=== PATIENT | female | born 1985 | race Hispanic/Latino ===

== ENCOUNTER 2018-10-20 19:18 | Emergency (ER) | payer SELFPAY ==
[2018-10-20 20:47] LABS: Absolute Lymphocytes (CBC) 3.2 K/uL (0.7-4.9); Absolute Monocytes 0.7 K/uL (0.1-1.3); Basophils % 0.3 % (0-1.3); Eosinophils % 0.7 % (0-4.4); MPV 8.9 fL (7.6-11.3); Monocytes % 4.8 % (3.3-12.3); RBC Red Blood Cell Count 4.47 M/uL (3.86-4.86)
[2018-10-20 20:50] LABS: Urine Blood TRACE (NEG); Urine Glucose NEGATIVE (NEG); Urine Protein NEGATIVE (NEG); Urine Specific Gravity 1.015 (1.005-1.030)
[2018-10-20 21:36] LABS: BUN Blood Urea Nitrogen 9 mg/dL (7-18); Bicarbonate 24 mmol/L (21-32); Glucose Level 90 mg/dL (74-106); HCG, Quantitative 76894 mIU/mL (1-3); Sodium Level 138 mmol/L (136-145)
[2018-10-20 22:16] LABS: Urine Bacteria 20-50 /HPF (<20); Urine Culture Reflex Order REFLEXED; Urine RBC <5 /HPF (NONE SEEN)
--- NOTE | 2018-10-20 22:26 | RAD REPORT ---
EXAM DESCRIPTION: US - Transvaginal OB - 10/20/2018 9:45 pm CLINICAL HISTORY: Abd pain;Abd cramping, COMPARISON: No comparisons FINDINGS: A single gestational sac is seen within the uterus. The shape of the sac is within normal limits for gestational age. Within the sac is a single pole with crown-rump length of 2.3 cm, c orrelating to estimated gestational age of 9 weeks 1 day. Estimated date of delivery is 05/24/2019. Heart rate is 174 BPM. The placenta is not yet developed due to early gestational age. The maternal adnexa are within normal limits. IMPRESSION: Single live early intrauterine gestation with estimated gestational age of 9 weeks 1 day , CARMEN 05/24/2019.
--- NOTE | 2018-10-20 22:29 | ER ---
Nurse's Notes [facility] Name: Nevin Julian Age: 33 yrs Sex: Female : 1985 Arrival Date: 10/20/2018 Time: 19:24 Bed 23 Private MD: None, None Diagnosis: Lower abdominal pain, unspecified;Intrauterine , first trimester Presentation: 10/20 19:30 Presenting complaint: Patient states: Pelvic pain and headache x 1 week with cramping; lp1 Denies any vaginal discharge; States about 9 weeks ; States whenever she eats, she vomits. Transition of care: patient was not received from another setting of care. Onset of symptoms was October 20, 2018. Risk Assessment: Do you want to hurt yourself or someone else? Patient reports no desire to harm self or others. Initial Sepsis Screen: Does the patient meet any 2 criteria? No. Patient's initial sepsis screen is negative. Does the patient have a suspected source of infection? No. Patient's initial sepsis screen is negative. Care prior to arrival: None. 19:30 Method Of Arrival: Ambulatory lp1 19:30 Acuity: WAYNE 3 lp1 Triage Assessment: 19:45 General: Appears in no apparent distress. comfortable, Behavior is calm, cooperative, ca1 appropriate for age. 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 - Social history:: Smoking status: Patient/guardian denies using tobacco. - Ebola Screening: : No symptoms or risks identified at this time. - Family history:: not pertinent. - Hospitalizations: : No recent hospitalization is reported. Screenin:40 Abuse screen: Denies threats or abuse. Denies injuries from another. Nutritional ca1 screening: No deficits noted. Tuberculosis screening: No symptoms or risk factors identified. Fall Risk None identified. Assessment: 19:40 General: Appears in no apparent distress. comfortable, Behavior is calm, cooperative, ca1 appropriate for age. Pain: Complains of pain in abdomen Pain does not radiate. Pain currently is 8 out of 10 on a pain scale. Pain began 1 week ago. Neuro: Level of Consciousness is awake, alert, obeys commands, Oriented to person, place, time, situation. Cardiovascular: Heart tones S1 S2 present Capillary refill < 3 seconds Patient's skin is warm and dry. Respiratory: Airway is patent Respiratory effort is even, unlabored, Respiratory pattern is regular, symmetrical, Breath sounds are clear bilaterally. GI: Abdomen is round non-distended, Bowel sounds present X 4 quads. Abd is soft and non tender X 4 quads. : No deficits noted. No signs and/or symptoms were reported regarding the genitourinary system. EENT: No deficits noted. No signs and/or symptoms were reported regarding the EENT system. Derm: Skin is intact, is healthy with good turgor, Skin is pink, warm \T\ dry. Musculoskeletal: Circulation, motion, and sensation intact. Capillary refill < 3 seconds. 20:35 Reassessment: Patient appears in no apparent distress at this time. Patient and/or ca1 family updated on plan of care and expected duration. Pain level reassessed. Patient is alert, oriented x 3, equal unlabored respirations, skin warm/dry/pink. 21:45 Reassessment: Patient appears in no apparent distress at this time. Patient and/or ca1 family updated on plan of care and expected duration. Pain level reassessed. Patient is alert, oriented x 3, equal unlabored respirations, skin warm/dry/pink. 22:40 Reassessment: Patient appears in no apparent distress at this time. Patient is alert, ca1 oriented x 3, equal unlabored respirations, skin warm/dry/pink. Vital Signs: 19:35 BP 121 / 83; Pulse 81; Resp 18; Temp 98.4(O); Pulse Ox 98% on R/A; Weight 87.09 kg; lp1 Height 5 ft. 4 in. (162.56 cm); Pain 5/10; 20:30 BP 120 / 81; Pulse 79; Resp 17 S; Pulse Ox 100% on R/A; ca1 21:25 BP 119 / 78; Pulse 82; Resp 17 S; Pulse Ox 100% on R/A; ca1 22:45 BP 125 / 84; Pulse 80; Resp 18 S; Pulse Ox 99% on R/A; ca1 19:35 Body Mass Index 32.96 (87.09 kg, 162.56 cm) lp1 ED Course: 19:24 Patient arrived in ED. mr 19:25 None, None is Private Physician. mr 19:34 Triage completed. lp1 19:35 Arm band placed on right wrist. lp1 19:48 Apolinar Fatima MD is Attending Physician. rn 20:00 Sil Kinney RN is Primary Nurse. ca1 20:30 Initial lab(s) drawn, by ED staff, sent to lab. Urine collected: clean catch specimen, jp3 clear, glenis colored. Inserted saline lock: 20 gauge in right antecubital area, using aseptic technique. Blood collected. 21:15 Repeat lab(s) drawn. by me, sent to lab. jp3 21:15 No provider procedures requiring assistance completed. ca1 21:19 Placed in gown. Bed in low position. Call light in reach. Side rails up X 1. Warm jp3 blanket given. Pillow given. Pulse ox on. NIBP on. 21:20 Ultrasound completed. Patient tolerated well. Notified ED Physician prema. sg3 21:45 US Transvaginal Ob In Process Unspecified. EDMS 22:45 IV discontinued, intact, bleeding controlled, No redness/swelling at site. Pressure ca1 dressing applied. Administered Medications: 22:35 Drug: Macrobid 100 mg Route: PO; ca1 22:49 Follow up: Response: Medication administered at discharge. ca1 Outcome: 22:29 Discharge ordered by . rn 22:45 Discharged to home ambulatory, with significant other. ca1 22:45 Condition: stable 22:45 Discharge instructions given to patient, Instructed on discharge instructions, follow up and referral plans. medication usage, Demonstrated understanding of instructions, follow-up care, medications, Prescriptions given X 1. 22:49 Patient left the ED. ca1 Signatures: Dispatcher [employer] [facility] Alisa Ro Apolinar Fatima MD MD rn Pena, Laura, RN RN lp1 Fany Rm sg3 Magdaleno Garcia jp3 Sil Kinney RN RN ca1 Corrections: (The following items were deleted from the chart) 21:19 20:00 Inserted saline lock: 20 gauge in right antecubital area, using aseptic jp3 technique. Blood collected. jp3 21:19 20:00 Initial lab(s) drawn, by ED staff, sent to lab. Urine collected: clean catch jp3 specimen, clear, glenis colored, jp3
--- NOTE | 2018-10-20 22:29 | EDPHYS ---
Physician Documentation [facility] Name: Nevin Julian Age: 33 yrs Sex: Female : 1985 Arrival Date: 10/20/2018 Time: 19:24 Bed 23 Private MD: None, None ED Physician Apolinar Fatima HPI: 10/20 20:40 This 33 yrs old Female presents to ER via Ambulatory with complaints of 9 wks rn , Abdominal Pain, Back Pain, Headache. 20:40 The patient presents to the emergency department with abdominal pain. The estimated rn gestational age is 9 weeks. course: care: none. Previous pregnancies: in previous pregnancies patient has had. The patient has experienced a previous episode. REports at approx 9 weeks , + lower abd pain, dysuria, negative for vaginal bleeding, + intermittent abd cramping, given last ended in , she was concerned and came in, has not had u/s for this . . 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 - Social history:: Smoking status: Patient/guardian denies using tobacco. - Ebola Screening: : No symptoms or risks identified at this time. - Family history:: not pertinent. - Hospitalizations: : No recent hospitalization is reported. ROS: 20:40 Constitutional: Negative for fever, chills, and weight loss, Eyes: Negative for injury, rn pain, redness, and discharge, Neck: Negative for injury, pain, and swelling, Cardiovascular: Negative for chest pain, palpitations, and edema, Respiratory: Negative for shortness of breath, cough, wheezing, and pleuritic chest pain, Abdomen/GI: + abd pain and nausea : Negative for injury, bleeding, discharge, and swelling, + dysuria MS/Extremity: Negative for injury and deformity, Skin: Negative for injury, rash, and discoloration, Neuro: Negative for headache, weakness, numbness, tingling, and seizure. Exam: 20:40 Constitutional: This is a well developed, well nourished patient who is awake, alert, rn and in no acute distress. Head/Face: Normocephalic, atraumatic. Eyes: Pupils equal round and reactive to light, extra-ocular motions intact. Lids and lashes normal. Conjunctiva and sclera are non-icteric and not injected. Cornea within normal limits. Periorbital areas with no swelling, redness, or edema. ENT: MMM Abdomen/GI: soft, non-tender Back: No spinal tenderness. No costovertebral tenderness. Full range of motion. Skin: Warm, dry with normal turgor. Normal color with no rashes, no lesions, and no evidence of cellulitis. MS/ Extremity: Pulses equal, no cyanosis. Neurovascular intact. Full, normal range of motion. Equal circumference. Neuro: Awake and alert, GCS 15, oriented to person, place, time, and situation. Cranial nerves II-XII grossly intact. Motor strength 5/5 in all extremities. Sensory grossly intact. Cerebellar exam normal. Normal gait. Vital Signs: 19:35 BP 121 / 83; Pulse 81; Resp 18; Temp 98.4(O); Pulse Ox 98% on R/A; Weight 87.09 kg; lp1 Height 5 ft. 4 in. (162.56 cm); Pain 5/10; 20:30 BP 120 / 81; Pulse 79; Resp 17 S; Pulse Ox 100% on R/A; ca1 21:25 BP 119 / 78; Pulse 82; Resp 17 S; Pulse Ox 100% on R/A; ca1 22:45 BP 125 / 84; Pulse 80; Resp 18 S; Pulse Ox 99% on R/A; ca1 19:35 Body Mass Index 32.96 (87.09 kg, 162.56 cm) lp1 MDM: 19:48 Patient medically screened. rn 22:27 Differential diagnosis: ectopic , uti. Data reviewed: vital signs, nurses rn notes, lab test result(s), radiologic studies, ultrasound, and as a result, I will discharge patient. Counseling: I had a detailed discussion with the patient and/or guardian regarding: the historical points, exam findings, and any diagnostic results supporting the discharge/admit diagnosis, lab results, radiology results, the need for outpatient follow up, to return to the emergency department if symptoms worsen or persist or if there are any questions or concerns that arise at home. Response to treatment: the patient's symptoms have mildly improved after treatment, and as a result, I will discharge patient. Special discussion: Based on the patient's Hx, exam, and Dx evaluation, there is no indication for emergent surgery or inpatient Tx. It is understood by the patient/guardian that if the Sx's persist or worsen they need to return immediately for re-evaluation. I discussed with the patient/guardian in detail that at this point there is no indication for admission to the hospital. It is understood, however, that if the symptoms persist or worsen the patient needs to return immediately for re-evaluation. Based on the history and exam findings, there is no indication for further emergent testing or inpatient evaluation. I discussed with the patient/guardian the need to see the OB Gyne specialist for further evaluation of the symptoms. ED course: Pt with normal FHTs and u/s, no vaginal bleeding, + bacteriuria, will treat with abx and OB f/u, afebrile and no RLQ tenderness, return precautions given and understood. . 10/20 19:51 Order name: Quantitative Hcg; Complete Time: 21:49 10/20 19:51 Order name: Abo/rh Typing; Complete Time: 21:49 10/20 19:51 Order name: Basic Metabolic Panel; Complete Time: 21:49 10/20 19:51 Order name: CBC with Diff; Complete Time: 21:49 10/20 20:32 Order name: Urine Dipstick--Ancillary (enter results); Complete Time: 21:49 ca5 10/20 20:32 Order name: Urine --Ancillary (enter results); Complete Time: 21:49 [facility] [place] 10/20 19:51 Order name: Urine Test (obtain specimen); Complete Time: 20:48 10/20 19:51 Order name: IV Saline Lock; Complete Time: 20:48 10/20 19:51 Order name: Labs collected and sent; Complete Time: 20:48 10/20 20:39 Order name: US Transvaginal Ob; Complete Time: 22:29 10/20 21:40 Order name: ABO/RH no charge; Complete Time: 21:49 [facility] 10/20 21:50 Order name: Urine Microscopic Only; Complete Time: 22:26 rn 10/20 22:17 Order name: Urine Culture [facility] 10/20 19:51 Order name: NPO; Complete Time: 20:48 rn 10/20 19:51 Order name: Urine Dipstick-Ancillary (obtain specimen); Complete Time: 20:48 rn Administered Medications: 22:35 Drug: Macrobid 100 mg Route: PO; ca1 22:49 Follow up: Response: Medication administered at discharge. ca1 Disposition: 10/20/18 22:29 Discharged to Home. Impression: Lower abdominal pain, unspecified, Intrauterine , first trimester. - Condition is Stable. - Discharge Instructions: Abdominal Pain During , First Trimester of . - Prescriptions for Macrobid 100 mg Oral Capsule - take 1 capsule by ORAL route every 12 hours for 7 days; 14 capsule. - Medication Reconciliation Form, Thank You Letter, Antibiotic Education, Prescription Opioid Use form. - Follow up: Private Physician; When: As needed; Reason: Recheck today's complaints, Re-evaluation by your physician. - Problem is new. - Symptoms have improved. Signatures: Dispatcher [employer] [facility] Apolinar Fatima MD MD rn Kaila Blanca RN RN lp1 Sil Kinney RN RN ca1 Corrections: (The following items were deleted from the chart) 22:49 22:29 10/20/2018 22:29 Discharged to Home. Impression: Lower abdominal pain, ca1 unspecified; Intrauterine , first trimester. Condition is Stable. Forms are Medication Reconciliation Form, Thank You Letter, Antibiotic Education, Prescription Opioid Use. Follow up: Private Physician; When: As needed; Reason: Recheck today's complaints, Re-evaluation by your physician. Problem is new. Symptoms have improved. rn
[2018-10-20] MEDS ORDERED: NITROFURAN MACRO 100 MG CAP PO ONE (22:56)
== END 2018-10-20 22:49 | disposition home or self-care (01) ==
LOC: ER 19:18
DX: O26.891 Other specified pregnancy related conditions, first trimester (principal); O99.281 Endocrine, nutritional and metabolic diseases complicating pregnancy, first trimester; E03.9 Hypothyroidism, unspecified; Z3A.09 9 weeks gestation of pregnancy
CPT/HCPCS: 36415; 76817; 80048; 81003; 81015; 81025; 84702; 85025; 86900; 86901; 87086; 87088; 99284